=== PATIENT | female | born 2005 | race Caucasian/White ===

== ENCOUNTER 2023-03-29 15:58 | Emergency (ER) | payer OTHER ==
[~2023-03-29] VITALS: Ht 172.7 cm; Wt 56.7 kg
[2023-03-29 16:03] VITALS: PULSE 110
[2023-03-29 16:30] VITALS: BP 131/79; RESP 16; O2SAT 99
[2023-03-29] MEDS ORDERED: ACETAMINOPHEN 325MG TABLET PO ONE (18:00)
[2023-03-29] MEDS ORDERED: ONDANSETRON 4MG ODT PO ONE (18:00)
[2023-03-29] MEDS ORDERED: MECLIZINE 25MG TABLET PO ONE (18:00)
[2023-03-29 18:43] VITALS: TEMP 98.3
[2023-03-29 19:26] LABS: CLARITY URINE CLEAR (CLEAR); COLOR URINE DARK YELLOW (YELLOW); GLUCOSE URINE NEGATIVE (NEGATIVE); KETONES URINE TRACE (NEGATIVE); LEUKOCYTE ESTERASE URINE TRACE (NEGATIVE); NITRITE URINE NEGATIVE (NEGATIVE); OCCULT BLOOD URINE NEGATIVE (NEGATIVE); PH URINE 6.5 (4.5-8.0); PROTEIN URINE TRACE (NEGATIVE); SPECIFIC GRAVITY URINE 1.028 (1.005-1.030)
[2023-03-29 20:20] LABS: BACTERIA URINE 1+; RBC URINE 0-2 /hpf (0-2); SQUAMOUS EPITHELIAL CELL URINE 1+ /lpf (RARE/1+); WBC URINE 0-2 /hpf (0-2)
[2023-03-29] MEDS ORDERED: ONDA4TAB50 MT (20:57)
[2023-03-29] MEDS ORDERED: CLAR10 MT (20:57)
[2023-03-29] MEDS ORDERED: IBUP-1523 MT (20:57)
[2023-03-29] MEDS ORDERED: FLUT9.9S BOTHNSTRLS (20:57)
[2023-03-29] MEDS ORDERED: TOPUD MT (20:57)
== END 2023-03-29 21:04 | disposition home or self-care (01) ==
LOC: ER 15:58
DX: R42 Dizziness and giddiness (principal); J30.9 Allergic rhinitis, unspecified
CPT/HCPCS: 99283; 81003; 81025; 82962; J8597; Q0162